=== PATIENT | male | born 1955 | race Caucasian/White ===

== ENCOUNTER → 2017-08-10 | Day surgery (SDC) | payer BC ==
[2017-08-06 08:30] VITALS: Ht 177.8 cm; Wt 100.0 kg
[~2017-08-10] VITALS: Ht 177.8 cm; Wt 100.0 kg
[~2017-08-10] MED LIST: ALPR-411 PO; ARGI1CAP2 PO; ASPI81TA28 PO; BUSP15TA70 PO; CARV12.5 PO; CHIA1POW PO; CLOP1TAB15 PO; COEN100C6 PO; HYDR-5688 PO; LIDOCAINE HCL 2% 2 ML VIAL (20MG/ML) ONE; LOSA1TAB PO; MAGN1TAB41 PO; MIDAZOLAM HCL 1 MG/ML 2ML VIAL ONE; OMEG10007 PO; ONDANSETRON INJ 2 MG/ML 2 ML VIAL ONE; PHENYLEPHRINE 100MCG/ML 5ML SYR ONE; PRAV20TA PO; PROPOFOL IV EMULSION 10 MG/ML 20 ML VIAL IV ONE; SODIUM CHLORIDE 0.9% 500ML 500 ML IV ONE; ZNTT/150 PO
--- NOTE | 2017-08-10 09:28 | Endo History and Physical ---
History & Physical Date of Service: Aug 10, 2017. Chief Complaint: Heartburn, chest pain Referring Physician: Shakeel History of Present Illness patient with atypical chest pain. Past Surgical History Hx Cardiac Surgery: Yes (HEART CATH X3, STENTS X2) Hx Internal Defibrillator: Yes (PACE/DEFIB ) Hx Pacemaker: Yes (PACE/DEFIB ) Hx Abdominal Surgery: Yes (TAD) Hx of Implantable Prosthesis: No Hx Post-Op Nausea and Vomiting: No Hx Cancer Surgery: No Hx Thoracic Surgery: No Hx Orthopedic: No Hx Urinary Tract Surgery: No Family History Colon CA Social History Smoking Status: Former Smoker Hx Substance Use: No Hx Alcohol Use: Yes (OCCASIONAL) Allergies Coded Allergies: No Known Allergies (Unverified , 08/06/17) Current Medications Reported Home Medications Medications Dose Route/Sig Max Daily Dose Days Date Category Dose Instructions [place] 5MG/325MG (Acetaminophen/Hydrocodone Bitart) Tab 1 Tablet PO Q4H PRN 08/06/17 Reported PRN PAIN Xanax (Alprazolam) 0.5 Mg Tab 0.5 Mg PO DAILY PRN 08/06/17 Reported Zantac (Ranitidine HCl) 150 Mg Tab 150 Mg PO DAILY PRN 08/06/17 Reported Pravachol (Pravastatin Sodium) 20 Mg Tab 20 Mg PO QPM 08/06/17 Reported Plavix (Clopidogrel Bisulfate) 75 Mg Tab 0.5 Tab PO QPM 08/06/17 Reported Cozaar (Losartan Potassium) 25 Mg Tab 25 Mg PO 1400 08/06/17 Reported Magnesium (Magnesium Oxide) 400 Mg Tab 1 Tab PO 1300 08/06/17 Reported [place]-3 (Fish Oil) 1 Ea Cap 1 Cap PO QAM 08/06/17 Reported Co-Enzyme Q10 (Coenzyme Q10 (Ubidecarenone)) 100 Mg Cap 1 Cap PO QAM 08/06/17 Reported Buspar (Buspirone Hcl) 15 Mg Tab 5 Mg PO BID 08/06/17 Reported Javier Seed 15,000 Mg/15 Gm Pow 2 Tbs PO QAM 08/06/17 Reported L-Arginine (Arginine) 500 Mg Cap 1 Cap PO TID 08/06/17 Reported Aspirin Ec (Aspirin) 81 Mg Tab 81 Mg PO QAM 08/06/17 Reported Coreg (Carvedilol) 12.5 Mg Tab 12.5 Mg PO BID 08/06/17 Reported Vital Signs Weight (Kilograms): 100 Height (Feet): 5 Height (Inches): 10 Date Time Temp Pulse Resp B/P (MAP) Pulse Ox O2 Delivery O2 Flow Rate FiO2 08/10/17 08:47 36.1 70 20 130/66 (87) 95 Room Air Physical Exam General Appearance: no apparent distress Respiratory/Chest: Auscultation: breath sounds normal Cardiovascular: Heart Auscultation: RRR Abdomen: Inspection & Palpation: soft Liver: non-tender Assessment and Plan stable for upper endoscopy
--- NOTE | 2017-08-10 09:44 | Discharge Instructions ---
Endoscopy Patient Instructions Date / Procedure(s) Performed Aug 10, 2017. EGD Allergy Information Coded Allergies: No Known Allergies (Unverified , 08/06/17) Discharge Date / Findings Aug 10, 2017. Normal upper endoscopy Medication Instructions Stopped Medication(s): Plavix and asprin Provider Instructions Activity Restrictions - No exercising or heavy lifting for 24 hours. - Do not drink alcohol the day of the procedure. - Do not drive a car or operate machinery until the day after the procedure. - Do not make any important decisions or sign important papers in 24 hours after the procedure. Following Day: - Return to full activity which may include returning to work/school. Diet Start your diet with liquids and light foods (jello, soup, juice, toast). Then eat your usual diet if not nauseated. Treatment For Common After Affects For mild abdominal pain, bloating, or excessive gas: - Rest - Eat lightly - Lie on right side Follow-Up Information Follow-up with [facility] as scheduled Anesthesia Information What You Should Know You have had a procedure that required some medicine to reduce anxiety and discomfort. This treatment is called moderate sedation. After receiving the treatment, you may be sleepy, but you will be able to breathe on your own. The effects of the treatment may last for several hours. Follow these instructions along with Activity/Diet recommendations noted above: * Do NOT do anything where dizziness or clumsiness would be dangerous. * Rest quietly at home today, then you can be up and about tomorrow. * Have a responsible person stay with you the rest of today. * You may have had an I.V. today. If so, you may take the dressing off later today. Recommendations Call your doctor if: * Trouble breathing * Continuous vomiting for more than 24 hours * Temperature above 101 degrees * Severe abdominal pain or bloating * Pain not relieved by pain medicine ordered * There is increased drainage or redness from any incision * A large amount of rectal bleeding greater than 2-3 tablespoons. (If you had a polyp/s removed or have hemorrhoids, a small amount of blood - from the rectum is to be expected.) * You have any unanswered questions or concerns. IN THE EVENT OF A SERIOUS EMERGENCY, GO TO THE NEAREST EMERGENCY ROOM Your discharge instructions were prepared by provider Edmundo Lipscomb. Patient Instructions Signature Page Ignacio Ayers Patient (or Guardian) Signature/Date: I have read and understand the instructions given to me by my caregivers. Caregiver/RN/Doctor Signature/Date: The above-named patient and/or guardian has received patient instructions on this date. + Original Patient Signature Page (only) stays with chart. Please make copy for patient.
--- NOTE | 2017-08-10 09:51 | GI REPORT ---
Procedure Date: 08/10/2017 9:27 AM Procedure: Upper GI endoscopy Indications: Unexplained chest pain Medicines: See the Anesthesia note for documentation of the administered medications Complications: No immediate complications. Estimated Blood Loss: Estimated blood loss: none. Procedure: Pre-Anesthesia Assessment: - Prior to the procedure, a History and Physical was performed, and patient medications, allergies and sensitivities were reviewed. The patient's tolerance of previous anesthesia was reviewed. - The risks and benefits of the procedure and the sedation options and risks were discussed with the patient. All questions were answered and informed consent was obtained. - Patient identification and proposed procedure were verified prior to the procedure by the physician and the nurse. The procedure was verified in the pre-procedure area. - Pre-procedure physical examination revealed no contraindications to sedation. - After reviewing the risks and benefits, the patient was deemed in satisfactory condition to undergo the procedure. After obtaining informed consent, the endoscope was passed under direct vision. Throughout the procedure, the patient's blood pressure, pulse, and oxygen saturations were monitored continuously. The scope was introduced through the mouth, and advanced to the third part of duodenum. The upper GI endoscopy was accomplished without difficulty. The patient tolerated the procedure well. Findings: The esophagus was normal. The stomach was normal. The examined duodenum was normal. The cardia and gastric fundus were normal on retroflexion. Impression: - Normal esophagus. - Normal stomach. - Normal examined duodenum. - No specimens collected. Recommendation: - Discharge patient to home. Edmundo Lipscomb M.D. Edmundo Lipscomb MD 08/10/2017 9:50:40 AM This report has been signed electronically. Note Initiated On: 08/10/2017 9:27 AM I attest to the content of the Intraoperative Record and orders documented therein, exceptions below
--- NOTE | 2017-08-10 10:17 | Anesthesiology Progress Note ---
Anesthesia Post Op Note Date & Time Aug 10, 2017 at 10:17 Vital Signs Pain Intensity: 0 Vital Signs Past 12 Hours Date Time Temp Pulse Resp B/P (MAP) Pulse Ox O2 Delivery O2 Flow Rate FiO2 08/10/17 10:13 63 20 102/69 (80) 95 Room Air 08/10/17 09:58 64 20 103/71 (82) 97 Room Air 08/10/17 09:53 65 20 91/60 (70) 100 Room Air 08/10/17 08:47 36.1 70 20 130/66 (87) 95 Room Air Notes Mental Status: alert / awake / arousable, participated in evaluation Pt Amnestic to Procedure: Yes Nausea / Vomiting: adequately controlled Pain: adequately controlled Airway Patency, RR, SpO2: stable & adequate BP & HR: stable & adequate Hydration State: stable & adequate Anesthetic Complications: no major complications apparent
[2017-08-10 10:28] VITALS: BP 101/68; PULSE 64; O2SAT 95
== END | disposition home or self-care (01) ==
LOC: C.GI 08:20
PROVIDERS: ATTEND Internal Medicine Gastroenterology
DX: R12 Heartburn (principal); R07.89 Other chest pain; Z80.0 Family history of malignant neoplasm of digestive organs; Z87.891 Personal history of nicotine dependence; Z95.0 Presence of cardiac pacemaker; Z79.899 Other long term (current) drug therapy